=== PATIENT | female | born 1975 | race Caucasian/White ===

== ENCOUNTER 2016-11-13 14:23 | Emergency (ER) | payer MEDICAID, BC ==
[~2016-11-13] VITALS: Ht 162.6 cm; Wt 76.3 kg
[2016-11-13 14:27] VITALS: BP 153/103
[2016-11-13] MEDS ORDERED: LORazepam 1MG TABLET PO ONE (15:00)
[2016-11-13] MEDS ORDERED: ONDANSETRON ODT 4 MG PO ONE (15:00)
[2016-11-13] MEDS ORDERED: THIAMINE 100MG TABLET PO ONE (15:00)
[2016-11-13] MEDS ORDERED: LORazepam 1MG TABLET ONE (15:34)
[2016-11-13] MEDS ORDERED: ONDANSETRON ODT 4 MG ONE (15:34)
[2016-11-13] MEDS ORDERED: THIAMINE 100MG TABLET ONE (15:34)
[2016-11-13 16:01] LABS: ASPARTATE AMINO TRANSFERASE 42 U/L (15-37); BLOOD UREA NITROGEN 10 mg/dL (7-18)
== END 2016-11-13 17:33 | disposition home or self-care (01) ==
LOC: ED 17:24
DX: F10.10 Alcohol abuse, uncomplicated (principal); F41.1 Generalized anxiety disorder; R06.4 Hyperventilation; I10 Essential (primary) hypertension; F12.10 Cannabis abuse, uncomplicated; Z98.84 Bariatric surgery status
CPT/HCPCS: 36415; 80053; 81003; 83690; 85025; 93005; 99285